=== PATIENT | female | born 1960 | race American Indian/Alaskan Native ===

== ENCOUNTER 2022-03-17 17:12 | Emergency (ER) | payer SELFPAY ==
[2022-03-17 18:36] VITALS: BP 178/108
--- NOTE | 2022-03-17 19:13 | XRay Report ---
CHEST 2 VIEWS INDICATION / CLINICAL INFORMATION: COUGH. COMPARISON: None available. FINDINGS: SUPPORT DEVICES: None. HEART / MEDIASTINUM: No significant abnormality. LUNGS / PLEURA: No significant pulmonary or pleural abnormality. No pneumothorax. ADDITIONAL FINDINGS: No significant additional findings. IMPRESSION: 1. No acute findings. Signer Name: Clinton Hill MD Signed: 03/17/2022 7:08 PM Workstation Name: [id number]
--- NOTE | 2022-03-17 22:17 | Emergency Department Report ---
ED General Adult HPI - General Chief complaint: Upper Respiratory Infection Stated complaint: CHEST PAIN/COUGHING Time Seen by Provider: 03/17/22 20:47 Source: patient Mode of arrival: Ambulatory Limitations: No Limitations - History of Present Illness Initial comments: 61-year-old F Malian female with metformin complaining of a 2 to 3-month history of excessively nonproductive coughing that causes some irritation to the throat and chest soreness with her excessive coughing spells. She reports no hemoptysis symptoms hematochezia, no nausea, no vomiting, no fever, chills, sweats. No headache, no blurry vision, no runny nose no ear pain no reflux to her knowledge discharge summary, treatment but been unsuccessful and would like to find out what is triggering the cough. He reports no orthopnea no lower extremity swelling no change in medications and does not take CASEY inhibitor Improves with: none Worsens with: none Associated Symptoms: cough. denies: confusion, malaise, nausea/vomiting, rash, shortness of breath, syncope, weakness - Related Data Previous Rx's Medication Instructions Recorded Last Taken Type Benzonatate [Tessalon Perles] 100 mg PO Q8HR #30 cap 03/17/22 Unknown Rx Fluticasone [Flonase] 1 spray NS QDAY #1 bottle 03/17/22 Unknown Rx Allergies Allergy/AdvReac Type Severity Reaction Status Date / Time No Known Allergies Allergy Verified 03/17/22 18:38 ED Review of Systems ROS: Stated complaint: CHEST PAIN/COUGHING Other details as noted in HPI Comment: All other systems reviewed and negative ED Past Medical Hx - Medications Home Medications: Home Medications Medication Instructions Recorded Confirmed Last Taken Type Benzonatate [Tessalon Perles] 100 mg PO Q8HR #30 cap 03/17/22 Unknown Rx Fluticasone [Flonase] 1 spray NS QDAY #1 bottle 03/17/22 Unknown Rx ED Physical Exam - General Limitations: No Limitations General appearance: alert, in no apparent distress - Head Head exam: Present: atraumatic, normocephalic - Eye Eye exam: Present: normal appearance - ENT ENT exam: Present: normal exam, normal orophraynx, mucous membranes moist, TM's normal bilaterally - Neck Neck exam: Present: normal inspection, full ROM, lymphadenopathy. Absent: ten derness, meningismus, thyromegaly - Respiratory Respiratory exam: Present: normal lung sounds bilaterally. Absent: respiratory distress - Cardiovascular Cardiovascular Exam: Present: regular rate, normal rhythm. Absent: systolic murmur, diastolic murmur, rubs, gallop - GI/Abdominal GI/Abdominal exam: Present: soft, normal bowel sounds - Extremities Exam Extremities exam: Present: normal inspection - Back Exam Back exam: Present: normal inspection - Neurological Exam Neurological exam: Present: alert, oriented X3 - Psychiatric Psychiatric exam: Present: normal affect, normal mood - Skin Skin exam: Present: warm, dry, intact, normal color. Absent: rash ED Course Vital Signs 03/17/22 18:34 Temperature 98.3 F Pulse Rate 73 Respiratory 18 Rate Blood Pressure 178/108 O2 Sat by Pulse 96 Oximetry ED Medical Decision Making - Radiology Data [facility] [address] [place] [address] XRay Report Signed Patient: THADDEUS FONTENOT MR#: [id number] : 1960 Acct:[id number] Age/Sex: 61 / F ADM Date: 03/17/22 Loc: ED Attending Dr: Ordering Physician: ED MD EZRA Date of Service: 03/17/22 Procedure(s): XR chest routine 2V Accession Number(s): [id number] cc: ED MD EZRA Fluoro Time In Minutes: CHEST 2 VIEWS INDICATION / CLINICAL INFORMATION: COUGH. COMPARISON: None available. FINDINGS: SUPPORT DEVICES: None. HEART / MEDIASTINUM: No significant abnormality. LUNGS / PLEURA: No significant pulmonary or pleural abnormality. No pneumothorax. ADDITIONAL FINDINGS: No significant additional findings. IMPRESSION: 1. No acute findings. Signer Name: Clinton Hill MD Signed: 03/17/2022 7:08 PM Workstation Name: [id number] Transcribed By: SS Dictated By: Clinton Hill MD Electronically Authenticated By: Clinton Hill MD Signed Date/Time: 03/17/221907 DD/ 02 TD/TT: - Medical Decision Making This patient presents with acute cough, most consistent with chronic cough. Differential diagnosis includes COPD, hypertensive disease, postnasal drip, acid reflux, pulmonary fibrosis, pleurisy, seasonal allergies. Presentation not consistent with acute bacterial pneumonia, influenza, asthma, transient airway hyperresponsiveness. Presentation not consistent with chronic causes of cough (including GERD, asthma, postnasal discharge, medication side effect, CHF, lung cancer or mass). Normal CXR Plan: , supportive care, reassess Critical care attestation.: If time is entered above; I have spent that time in minutes in the direct care of this critically ill patient, excluding procedure time. ED Disposition Clinical Impression: Chronic cough Disposition: HOME / SELF CARE / HOMELESS Is pt being admited?: No Does the pt Need Aspirin: No Condition: Stable Instructions: Cough, Adult Prescriptions: Fluticasone [Flonase] 1 spray NS QDAY #1 bottle Benzonatate [Tessalon Perles] 100 mg PO Q8HR #30 cap Referrals: [facility] [Provider Group] - 3-5 Days
== END 2022-03-17 22:38 | disposition home or self-care (01) ==
LOC: ED 17:12
DX: R05.9 Cough, unspecified (principal); R07.89 Other chest pain; Z79.899 Other long term (current) drug therapy
CPT/HCPCS: 71046; 99283

== ENCOUNTER 2022-03-25 18:36 | Emergency (ER) | payer SELFPAY ==
[2022-03-25 20:35] VITALS: BP 141/74
--- NOTE | 2022-03-25 20:40 | Emergency Department Report ---
ED ENT HPI - General Chief complaint: Upper Respiratory Infection Stated complaint: COUGHING Time Seen by Provider: 03/25/22 20:35 Source: patient Mode of arrival: Ambulatory Limitations: No Limitations - History of Present Illness Initial comments: 60-year-old black female with a past medical history of hypertension presents to the emergency department for evaluation of persistent cough. She states that she was seen here 1 week ago for the same, had a negative x-ray, and was discharged home with Corinna Agarwal. She states that she has not had any relief from her cough since then. She states that now she is having pain in most of her up upper body secondary to the persistent cough. She states that she only has pain when she coughs. She denies fever, chest pain, shortness of breath, nausea, vomiting, dizziness, and diaphoresis. MD complaint: other -: Gradual (Persistent cough), week(s) (1.5) Location: other (Body aches over entire upper body) Severity: moderate Severity scale (0 -10): 7 Quality: aching Consistency: intermittent Worsens with: other (Cough and) Associated Symptoms: cough. denies: fever, gum swelling, toothache, pain with swallowing, sore throat, tinnitus, hearing loss, discharge from ear, rhinorrhea - Related Data Previous Rx's Medication Instructions Recorded Last Taken Type Benzonatate [Tessalon Perles] 100 mg PO Q8HR #30 cap 03/17/22 Unknown Rx Fluticasone [Flonase] 1 spray NS QDAY #1 bottle 03/17/22 Unknown Rx Cetirizine HCl [Zyrtec 10mg tab] 10 mg PO DAILY #30 tab 03/25/22 Unknown Rx Prednisone [predniSONE 10 mg 10 mg PO .TAPER #1 pack 03/25/22 Unknown Rx (6-Day Pack, 21 Tabs)] guaiFENesin/CODEINE [Robitussin AC] 10 ml PO TID PRN #120 ml 03/25/22 Unknown Rx Allergies Allergy/AdvReac Type Severity Reaction Status Date / Time No Known Allergies Allergy Verified 03/17/22 18:38 ED Dental HPI - General Chief complaint: Upper Respiratory Infection Stated complaint: COUGHING Time Seen by Provider: 03/25/22 20:35 Source: patient Mode of arrival: Ambulatory Limitations: No Limitations - Related Data Previous Rx's Medication Instructions Recorded Last Taken Type Benzonatate [Tessalon Perles] 100 mg PO Q8HR #30 cap 03/17/22 Unknown Rx Fluticasone [Flonase] 1 spray NS QDAY #1 bottle 03/17/22 Unknown Rx Cetirizine HCl [Zyrtec 10mg tab] 10 mg PO DAILY #30 tab 03/25/22 Unknown Rx Prednisone [predniSONE 10 mg 10 mg PO .TAPER #1 pack 03/25/22 Unknown Rx (6-Day Pack, 21 Tabs)] guaiFENesin/CODEINE [Robitussin AC] 10 ml PO TID PRN #120 ml 03/25/22 Unknown Rx Allergies Allergy/AdvReac Type Severity Reaction Status Date / Time No Known Allergies Allergy Verified 03/17/22 18:38 ED Review of Systems ROS: Stated complaint: COUGHING Other details as noted in HPI Comment: All other systems reviewed and negative Constitutional: denies: chills, diaphoresis, fever, malaise, weakness Eyes: denies: eye pain, eye discharge, vision change ENT: congestion. denies: ear pain, throat pain Respiratory: cough. denies: shortness of breath, SOB with exertion, SOB at rest, stridor, wheezing Cardiovascular: denies: chest pain, palpitations, dyspnea on exertion, orthopnea, edema, syncope, paroxysmal nocturnal dyspnea Gastrointestinal: denies: abdominal pain, nausea, vomiting, diarrhea, hematemesis, melena, hematochezia Genitourinary: denies: urgency, dysuria, frequency, hematuria, discharge Musculoskeletal: myalgia. denies: back pain, joint swelling, arthralgia Skin: denies: rash, lesions Neurological: denies: headache, weakness ED Past Medical Hx - Medications Home Medications: Home Medications Medication Instructions Recorded Confirmed Last Taken Type Benzonatate [Tessalon Perles] 100 mg PO Q8HR #30 cap 03/17/22 Unknown Rx Fluticasone [Flonase] 1 spray NS QDAY #1 bottle 03/17/22 Unknown Rx Cetirizine HCl [Zyrtec 10mg tab] 10 mg PO DAILY #30 tab 03/25/22 Unknown Rx Prednisone [predniSONE 10 mg 10 mg PO .TAPER #1 pack 03/25/22 Unknown Rx (6-Day Pack, 21 Tabs)] guaiFENesin/CODEINE [Robitussin AC] 10 ml PO TID PRN #120 ml 03/25/22 Unknown Rx ED Physical Exam - General Limitations: No Limitations General appearance: alert, in no apparent distress - Head Head exam: Present: atraumatic, normocephalic - Eye Eye exam: Present: normal appearance. Absent: scleral icterus, conjunctival injection, periorbital swelling, periorbital tenderness - ENT ENT exam: Absent: normal exam (Bilateral nasal mucosal edema), normal orophraynx (Erythema noted to posterior oropharynx) - Neck Neck exam: Present: normal inspection, full ROM. Absent: tenderness, lymphadenopathy - Respiratory Respiratory exam: Present: normal lung sounds bilaterally, chest wall tenderness. Absent: respiratory distress, wheezes, rales, rhonchi, stridor - Cardiovascular Cardiovascular Exam: Present: regular rate, normal heart sounds - GI/Abdominal GI/Abdominal exam: Present: soft, normal bowel sounds. Absent: distended, tenderness, guarding, rebound, rigid - Extremities Exam Extremities exam: Present: normal inspection, normal capillary refill. Absent: pedal edema, joint swelling, calf tenderness - Back Exam Back exam: Present: normal inspection. Absent: CVA tenderness (R), CVA tenderness (L), vertebral tenderness - Neurological Exam Neurological exam: Present: alert, oriented X3, CN II-XII intact, normal gait - Psychiatric Psychiatric exam: Present: normal affect, normal mood - Skin Skin exam: Present: warm, dry, intact, normal color ED Course Vital Signs 03/25/22 20:31 Temperature 98.4 F Pulse Rate 74 Respiratory 18 Rate Blood Pressure 141/74 [Right] O2 Sat by Pulse 98 Oximetry ED Medical Decision Making - Medical Decision Making 60-year-old black female with a past medical history of hypertension presents to the emergency department for evaluation of persistent cough. She states that she was seen here 1 week ago for the same, had a negative x-ray, and was discharged home with Corinna Agarwal. She states that she has not had any relief from her cough since then. She states that now she is having pain in most of her up upper body secondary to the persistent cough. She states that she only has pain when she coughs. She denies fever, chest pain, shortness of breath, nausea, vomiting, dizziness, and diaphoresis. Physical exam notable for tenderness with palpation to the chest wall and upper and lower back. Also noted to have tenderness to those area with movement of arms. Patient will be discharged home with steroid Dosepak, Robitussin-AC, and Zyrtec. She is advised to take medications as prescribed and follow-up with her primary care provider if no improvement or return to the emergency department if she develops fever, chest pain, shortness of breath. Of note, patient states that she takes a medication from [place] for her hypertension, Cuauhtemoc. She is unsure of the [place] equivalent. Discussed with patient and daughter the fact that [place] may be an equivalent of lisinopril, and they should investigate it because it could be the source of her persistent cough. She was advised to follow-up with the primary care provider here for further management and evaluation. They verbalized understanding of and agreement with plan of care. Critical care attestation.: If time is entered above; I have spent that time in minutes in the direct care of this critically ill patient, excluding procedure time. ED Disposition Clinical Impression: URI with cough and congestion Disposition: 01 HOME / SELF CARE / HOMELESS Is pt being admited?: No Does the pt Need Aspirin: No Condition: Stable Instructions: Cough, Adult, [id number], Upper Respiratory Infection, Adult, [id number] Additional Instructions: Take medications as prescribed. Investigate hypertension medication that patient takes from [place] to see if it is equivalent with lisinopril which causes a persistent cough. Follow-up with your primary care provider for further evaluation and management. Return to the emergency department as needed. Prescriptions: Prednisone [predniSONE 10 mg (6-Day Pack, 21 Tabs)] 10 mg PO .TAPER #1 pack guaiFENesin/CODEINE [Robitussin AC] 10 ml PO TID PRN #120 ml PRN Reason: Cough Cetirizine HCl [Zyrtec 10mg tab] 10 mg PO DAILY #30 tab Referrals: GLENDY SIMPSON MD [Primary Care Provider] - 3-5 Days Time of Disposition: 20:40
== END 2022-03-26 00:10 | disposition home or self-care (01) ==
LOC: ED 18:36
DX: J06.9 Acute upper respiratory infection, unspecified (principal); R05.9 Cough, unspecified; R09.81 Nasal congestion
CPT/HCPCS: 99282